=== PATIENT | female | born 1985 | race Caucasian/White ===

== ENCOUNTER 2016-12-29 01:17 | Inpatient (IN) | payer OTHER ==
[~2016-12-29] VITALS: Ht 172.7 cm; Wt 125.5 kg
[2016-12-29] MEDS: D5%-LACTATED RINGERS 1,000 ML IV SCH ×2 (01:41→09:41)
[2016-12-29] MEDS ORDERED: OXYTOCIN 30U/ 0.9% NaCL 500ML 500 ML IV ONE (01:41)
[2016-12-29] MEDS ORDERED: OXYTOCIN 30U/ 0.9% NaCL 500ML 500 ML ONE ×2 (01:44→01:46)
[2016-12-29] MEDS ORDERED: NEWBORN KIT ONE (01:44)
[2016-12-29] MEDS: LACTATED RINGERS 1,000 ML IV SCH ×5 (01:50→20:58)
[2016-12-29] MEDS ORDERED: FENTANYL PF 100 MCG/2ML IV PRN (02:00)
[2016-12-29] MEDS ORDERED: CALCIUM CARBONATE 500 MG TAB.CHEW PO PRN (02:00)
[2016-12-29] MEDS ORDERED: ONDANSETRON 2MG/ML, 2ML IVPush PRN (02:00)
[2016-12-29] MEDS ORDERED: FENTANYL PF 100 MCG/2ML IVPush PRN (02:00)
[2016-12-29] MEDS ORDERED: PENICILLIN GK 5,000,000 UNITS in DEXTROSE 5% 100 ML IVPB ONE (02:00)
[2016-12-29] MEDS: PENICILLIN GK 2,500,000 UNITS in DEXTROSE 5% 100 ML IV SCH ×3 (07:38→14:00)
[2016-12-29] MEDS ORDERED: FENTANYL/BUPIV./NS/PF 250 ML EPIDCONT ONE (10:22)
[2016-12-29] MEDS ORDERED: BUPIVACAINE 0.25% ONE (10:22)
[2016-12-29] MEDS ORDERED: FENTANYL PF 100 MCG/2ML ONE (10:22)
[2016-12-29] MEDS ORDERED: FENTANYL/BUPIV./NS/PF 250 ML EPIDCONT SCH (12:58)
[2016-12-29] MEDS ORDERED: LACTATED RINGERS 1,000 ML IVBOLUS PRN (13:00)
[2016-12-29] MEDS: OXYTOCIN 30U/ 0.9% NaCL 500ML 500 ML IV SCH (16:33)
[2016-12-29] MEDS ORDERED: ACETAMINOPHEN 325 MG TABLET PO PRN (17:00)
[2016-12-29] MEDS ORDERED: METHYLERGONOVINE 0.2 MG/ML IM PRN (17:00)
[2016-12-29] MEDS ORDERED: HYDROcodone/APAP 5/325 TABLET PO PRN ×2 (17:00)
[2016-12-29] MEDS ORDERED: MISOPROSTOL 200 MCG TABLET PR PRN (17:00)
[2016-12-29] MEDS ORDERED: ONDANSETRON 2MG/ML, 2ML IV PRN (17:00)
[2016-12-29] MEDS ORDERED: IBUPROFEN 600 MG TABLET ONE (17:11)
[2016-12-29] MEDS: IBUPROFEN 600 MG TABLET PO PRN (17:14)
[2016-12-29 18:37] VITALS: BP 114/69
[2016-12-29] MEDS ORDERED: DIPH,PERTUSS(ACELL),TET VAC/PF NC IM-VACC ONE (19:30)
[2016-12-29 19:45] VITALS: BP 104/59
[2016-12-29 23:45] VITALS: BP 100/59
[2016-12-30] MEDS: OXYTOCIN 30U/ 0.9% NaCL 500ML 500 ML IV SCH ×3 (02:33→22:33)
[2016-12-30] MEDS: IBUPROFEN 600 MG TABLET PO PRN ×3 (03:34→16:33)
[2016-12-30 03:38] VITALS: BP 101/60
[2016-12-30] MEDS: LACTATED RINGERS 1,000 ML IV SCH ×3 (04:58→20:58)
[2016-12-30 07:55] VITALS: BP 100/69
[2016-12-30] MEDS ORDERED: DOCUSATE 100 MG CAPSULE ONE (09:12)
[2016-12-30] MEDS: PRENATAL VIT/IRON/FA 1 EACH TABLET PO SCH (09:20)
[2016-12-30 12:35] VITALS: BP 114/76
[2016-12-30 16:30] VITALS: BP 111/72
[2016-12-30 20:15] VITALS: BP_SYST 108; BP_SYST 118; BP_DIAS 60; BP_DIAS 66
[2016-12-31] MEDS: LACTATED RINGERS 1,000 ML IV SCH ×2 (04:58→12:58)
[2016-12-31] MEDS: PRENATAL VIT/IRON/FA 1 EACH TABLET PO SCH (07:39)
[2016-12-31] MEDS: IBUPROFEN 600 MG TABLET PO PRN (07:40)
[2016-12-31 08:00] VITALS: BP 120/77
[2016-12-31] MEDS: OXYTOCIN 30U/ 0.9% NaCL 500ML 500 ML IV SCH ×2 (08:33→18:33)
[2016-12-31] MEDS ORDERED: IBUP-1222 PO (12:39)
[2016-12-31] MEDS ORDERED: DOCU-30 PO (12:45)
== END 2016-12-31 20:06 | disposition home or self-care (01) | DRG 775 ==
LOC: LDOP 01:17 → LDIP 01:44 → 2NW 17:50
PROVIDERS: ADMIT Obstetrics & Gynecology; ATTEND Obstetrics & Gynecology
PROC: 10E0XZZ Delivery of Products of Conception, External Approach (ICD-10-PCS; principal; 2016-12-29)
PROC: 0UQMXZZ Repair Vulva, External Approach (ICD-10-PCS; 2016-12-29)
PROC: 00HU33Z Insertion of Infusion Device into Spinal Canal, Percutaneous Approach (ICD-10-PCS; 2016-12-29)
PROC: 3E0R3CZ (ICD-10-PCS; 2016-12-29)
DX: O42.913 Preterm premature rupture of membranes, unspecified as to length of time between rupture and onset of labor, third trimester (principal); Z68.41 Body mass index [BMI] 40.0-44.9, adult; Z37.0 Single live birth; Z3A.36 36 weeks gestation of pregnancy; O99.214 Obesity complicating childbirth; E66.9 Obesity, unspecified
CPT/HCPCS: 36415; 85025; 86850; 86900; 89060; J2540; J2590; J7120; Q0114